=== PATIENT | female | born 1990 | race Caucasian/White ===

== ENCOUNTER 2018-04-01 18:07 | Emergency (ER) | payer OTHER ==
[2018-04-01 18:30] VITALS: BP 122/77
--- NOTE | 2018-04-01 19:15 | UC ---
Throat Pain/Nasal Pancho HPI - HPI Summary HPI Summary: c/o sore throat with malaise and some URI symptoms for several days, son was diagnosed with strep throat. Denies fever, chills or n/v/d. - History of Current Complaint Chief Complaint: UCGeneralIllness Stated Complaint: SORE THROAT Time Seen by Provider: 04/01/18 18:38 Hx Obtained From: Patient Hx Last Menstrual Period: last wk Onset/Duration: Sudden Onset, Lasting Days Severity: Moderate Pain Intensity: 5 Cough: None Associated Signs & Symptoms: Positive: Nasal Discharge - Epiglottits Risk Factors Epiglottis Risk Factors: Negative - Allergies/Home Medications Allergies/Adverse Reactions: Allergies Allergy/AdvReac Type Severity Reaction Status Date / Time morphine AdvReac Vomiting Verified 04/01/18 18:25 PMH/Surg Hx/FS Hx/Imm Hx Previously Healthy: Yes - Surgical History Surgical History: Yes Surgery Procedure, Year, and Place: L ankle - Family History Known Family History: Positive: Hypertension - Social History Alcohol Use: Rare Substance Use Type: None Smoking Status (MU): Former Smoker Type: Cigarettes Amount Used/How Often: 1-2 CIGS PER WK Length of Time of Smoking/Using Tobacco: 3 MOS Review of Systems Constitutional: Negative ENT: Sore Throat All Other Systems Reviewed And Are Negative: Yes Physical Exam Triage Information Reviewed: Yes Appearance: Well-Appearing, No Pain Distress, Obese Vital Signs: Initial Vital Signs Temp 98.8 F 04/01/18 18:27 Pulse 99 04/01/18 18:27 Resp 15 04/01/18 18:27 BP 122/77 04/01/18 18:27 Pulse Ox 100 04/01/18 18:27 Vital Signs Reviewed: Yes Eyes: Positive: Conjunctiva Clear ENT: Positive: Normal ENT inspection, Hearing grossly normal, Pharynx normal Neck: Positive: Supple, Nontender, No Lymphadenopathy Respiratory: Positive: Chest non-tender, Lungs clear, Normal breath sounds, No respiratory distress, No accessory muscle use Cardiovascular: Positive: RRR, No Murmur, Pulses Normal, Brisk Capillary Refill Throat Pain/Nasal Course/Dx - Course Course Of Treatment: rapid strept was negative, awaiting results of the throat culture. f/u labs in 48 hr if positve. - Differential Dx/Diagnosis Provider Diagnoses: pharyngitis Discharge - Sign-Out/Discharge Documenting (check all that apply): Discharge/Admit/Transfer - Discharge Plan Condition: Stable Disposition: HOME Patient Education Materials: Pharyngitis (ED) Referrals: No Primary Care Phys,NOPCP [Primary Care Provider] - [facility] [place] [facility] [Outside] - Billing Disposition and Condition Condition: STABLE Disposition: Home
== END 2018-04-01 19:18 | disposition home or self-care (01) ==
LOC: UCCORT 18:07
DX: J02.9 Acute pharyngitis, unspecified (principal); Z88.5 Allergy status to narcotic agent; Z87.891 Personal history of nicotine dependence
CPT/HCPCS: 87070; 87651; 99211; G0463

== ENCOUNTER 2019-03-31 08:14 | Emergency (ER) | payer OTHER ==
[2019-03-31 08:24] VITALS: BP 125/84
[2019-03-31] MEDS ORDERED: Albuterol/Ipratropium NEB.SOL* Albuterol 2.5 MG/Ipratropium 0.5 MG 3 ML INH ONE (08:39)
--- NOTE | 2019-03-31 08:40 | UC ---
Respiratory Complaint HPI - HPI Summary HPI Summary: 29-year-old female who says she's had a cough for over one year. She states over the past few days she has started coughing up "gross colored sputum". She is a nonsmoker, she is on control pills. She does not recall if she's had a fever over the past week. She has no family history of DVT or pulmonary embolus and she has no leg pain. - History of Current Complaint Chief Complaint: UCGeneralIllness Stated Complaint: COUGH, CHEST CONGESTION Time Seen by Provider: 03/31/19 08:21 Hx Obtained From: Patient Hx Last Menstrual Period: 03/30/19 ?: No Onset/Duration: Gradual Onset Severity Initially: Mild Severity Currently: Moderate - Patient states she "just feels terrible". Pain Intensity: 7 Character: Cough: Productive - Productive cough of "gross colored sputum". Aggravating Factors: Nothing Alleviating Factors: Nothing Associated Signs And Symptoms: Positive: Wheezing, URI, Nasal Congestion - Risk Factors Pulmonary Embolism Risk Factors: Oral Contraceptives - Allergies/Home Medications Allergies/Adverse Reactions: Allergies Allergy/AdvReac Type Severity Reaction Status Date / Time morphine AdvReac Vomiting Verified 03/31/19 08:24 PMH/Surg Hx/FS Hx/Imm Hx Previously Healthy: Yes - Surgical History Surgical History: Yes Surgery Procedure, Year, and Place: L ankle - Family History Known Family History: Positive: Hypertension - Social History Alcohol Use: Rare Substance Use Type: Marijuana Smoking Status (MU): Former Smoker Type: Cigarettes Amount Used/How Often: 1-2 CIGS PER WK Length of Time of Smoking/Using Tobacco: 3 MOS Review of Systems All Other Systems Reviewed And Are Negative: Yes ENT: Positive: Sore Throat - Sore throat for the past 3 days. Respiratory: Positive: Cough - Productive cough of "gross colored sputum". Cardiovascular: Positive: Other - Patient states she does have some "lung pain" on deep inspiration, however she does state she thinks this is from coughing a lot. Is Patient Immunocompromised?: No Physical Exam Triage Information Reviewed: Yes Appearance: Well-Appearing, No Pain Distress, Well-Nourished Vital Signs: Initial Vital Signs Temp 99.7 F 03/31/19 08:21 Pulse 124 03/31/19 08:21 Resp 20 03/31/19 08:21 BP 125/84 03/31/19 08:21 Pulse Ox 97 03/31/19 08:21 Vital Signs Reviewed: Yes Eyes: Positive: Conjunctiva Clear ENT: Positive: Hearing grossly normal, Pharyngeal erythema - Very minimal tonsillar erythema., TMs normal, Uvula midline Neck: Positive: Supple, Nontender, No Lymphadenopathy Respiratory: Positive: No respiratory distress, No accessory muscle use, Rhonchi - Mild scattered rhonchi., Wheezing - Expiratory wheezing on forced expiration. Cardiovascular: Positive: No Murmur, Pulses Normal, Brisk Capillary Refill, Tachycardia Musculoskeletal Exam: Normal Neurological Exam: Normal Psychological Exam: Normal Skin Exam: Normal Respiratory Course/Dx - Course Course Of Treatment: CXR: FINDINGS: The heart and mediastinum are normal in size and contour. The lungs are grossly clear. There is no evidence of large pleural effusion. Visualized bones are normal for the patient's age. There is no radiographic evidence of free air beneath the diaphragm IMPRESSION: No radiographic evidence of acute cardiopulmonary disease. Rapid strep:negative DuoNeb treatment: The wheezing and rhonchi have completely cleared following the DuoNeb treatment. Patient feels like she is taking about her breath. Her pulse was rechecked and it is at 100 prior to discharge. I did talk with her about the use of estrogen and its length to pulmonary embolus and she does not have a family history of DVT or pulmonary embolus. Her well's score was 1.5. Given her symptoms I'm going to treat her for bronchitis, after discussion with Dr. ledesma, and she is to go to the emergency room if she has any worsening symptoms, difficulty breathing or increased pain with inspiration. Patient is agreeable to this plan of action. When she departed she ambulated without difficulty and actually appeared like she felt much better. - Differential Dx/Diagnosis Provider Diagnosis: Bronchitis Discharge - Sign-Out/Discharge Documenting (check all that apply): Patient Departure All imaging exams completed and their final reports reviewed: Yes - Discharge Plan Condition: Fair Disposition: HOME Prescriptions: Azithromyxin RAGHAV (NF) [Z-Raghav (Zithromax) 250 mg tabs #6] 2 tab PO .TODAY, THEN 1 DAILY #6 tab predniSONE [Prednisone 20 MG TAB] 20 mg PO DAILY 9 Days #18 tablet Patient Education Materials: Acute Bronchitis (ED) Referrals: [facility] [Outside] No Primary Care Phys,NOPCP [Primary Care Provider] - Additional Instructions: Increase fluids, take the prednisone with food, follow-up with your primary care provider or [facility] if no improvement in 3 or 4 days. If you develop worsening pain on inspiration, difficulty breathing or any worsening symptoms follow-up in the emergency room. - Billing Disposition and Condition Condition: FAIR Disposition: Home - Attestation Statements Provider Attestation: Per institutional requirements, I have reviewed the chart, however, I was not consulted specifically or made aware of this patient by the midlevel provider. I did not personally evaluate, interact with , or disposition this patient.
== END 2019-03-31 08:30 | disposition home or self-care (01) ==
LOC: UCCORT 08:14
DX: J40 Bronchitis, not specified as acute or chronic (principal); Z79.3 Long term (current) use of hormonal contraceptives; Z88.5 Allergy status to narcotic agent; Z87.891 Personal history of nicotine dependence
CPT/HCPCS: 71046; 87651; 99212; A9270-GY; G0463

== ENCOUNTER 2019-12-23 11:58 | Emergency (ER) | payer OTHER ==
[2019-12-23 12:47] VITALS: BP 112/69
--- NOTE | 2019-12-23 12:50 | UC ---
General HPI - HPI Summary HPI Summary: 29yo female presenting with a "round white spot" on the roof of her mouth that she noticed this morning. States it is tender. States she is getting over having the flu. States symptoms better but has residual cough. Denies having a sore throat but would like to be swabbed for strep because she has been around her son's friends who have it. Denies fever and chills. - History of Current Complaint Chief Complaint: UCGeneralIllness Stated Complaint: MOUTH COMP Hx Obtained From: Patient Hx Last Menstrual Period: 12/02/19 Pain Intensity: 5 - Allergy/Home Medications Allergies/Adverse Reactions: Allergies Allergy/AdvReac Type Severity Reaction Status Date / Time morphine AdvReac Vomiting Verified 12/23/19 12:44 Home Medications: Home Medications desogestreL-ethinyl estradioL [Enskyce 28 Tablet] 1 tab PO DAILY 12/23/19 [ History Confirmed 12/23/19] PMH/Surg Hx/FS Hx/Imm Hx - Surgical History Surgical History: Yes Surgery Procedure, Year, and Place: L ankle - Family History Known Family History: Positive: Hypertension - Social History Alcohol Use: Rare Substance Use Type: Marijuana Smoking Status (MU): Former Smoker Type: Cigarettes Amount Used/How Often: 1-2 CIGS PER WK Length of Time of Smoking/Using Tobacco: 3 MOS When Did the Patient Quit Smoking/Using Tobacco: 2007 Review of Systems All Other Systems Reviewed And Are Negative: Yes Constitutional: Positive: Negative ENT: Positive: Other - "round white spot" on roof of mouth. Negative: Sore Throat Respiratory: Positive: Cough Cardiovascular: Positive: Negative Gastrointestinal: Positive: Negative Musculoskeletal: Positive: Negative Neurological/Mental Status: Positive: Negative Physical Exam - Summary Physical Exam Summary: Vital Signs Reviewed: Yes A+Ox3, no distress, well-appearing Eyes: Conjunctiva Clear ENT: Hearing grossly normal, TM x 2 clear, moist, uvula midline, 5mm round white lesion noted on right side soft palate with smaller 1mm lesions extending back to right tonsil, lesions are surrounded by erythema, mildly tender to palpation, nondraining, no tonsillar swelling Neck: Positive: Supple, no adenopathy Respiratory: Positive: No respiratory distress, No accessory muscle use Cardiovascular: skin reflects adequate perfusion Musculoskeletal Exam: ARGUETA x 4 without difficulty Neurological: Positive: Alert Psychological: Positive: age appropriate behavior Skin: Positive: no rash, no ecchymosis Vital Signs: Initial Vital Signs Temp 97.8 F 12/23/19 12:45 Pulse 102 12/23/19 12:45 Resp 15 12/23/19 12:45 BP 112/69 12/23/19 12:45 Pulse Ox 98 12/23/19 12:45 Lab Results 12/23/19 Range/Units 13:01 Group A Strep Rapid Negative (Negative) Course/Dx - Course Course Of Treatment: Negative rapid strep test. Discussed with patient likely viral etiology of symptoms. I educated on symptomatic relief and instructed to follow up if symptoms worsen or persist. Patient voiced understanding and agreed with treatment plan. - Diagnoses Provider Diagnosis: Soft palate ulceration Discharge ED - Sign-Out/Discharge Documenting (check all that apply): Patient Departure All imaging exams completed and their final reports reviewed: No Studies - Discharge Plan Condition: Stable Disposition: HOME Patient Education Materials: Canker Sores (ED) Referrals: [facility] [Outside] - If Needed Additional Instructions: Your strep test was negative today. It is unclear what is causing the lesions in your mouth today. You may take over the counter pain medications as directed. Practice good oral hygiene. Avoid hard, crunchy foods that may cause further pain and irritation. Follow up with your primary care provider or the [facility] listed below if symptoms worsen or do not improve within 2 weeks. - Billing Disposition and Condition Condition: STABLE Disposition: Home
== END 2019-12-23 13:24 | disposition home or self-care (01) ==
LOC: UCCORT 11:58
DX: K12.1 Other forms of stomatitis (principal); R05 Cough; Z88.5 Allergy status to narcotic agent; Z87.891 Personal history of nicotine dependence
CPT/HCPCS: 87651; 99211; G0463

== ENCOUNTER 2019-12-25 15:28 | Emergency (ER) | payer OTHER ==
[2019-12-25 15:52] VITALS: BP 127/80
--- NOTE | 2019-12-25 16:04 | UC ---
Throat Pain/Nasal Pancho HPI - HPI Summary HPI Summary: 29 y/o female presents to the urgent care c/o Pt seen here 2 days ago and she had one sore on the right side of the roof of her mouth. Pt back today because there are white sores all throughout the roof of her mouth and her soft palate. Pt states they are very painful. Pt states she was strep negative last time she was here. - History of Current Complaint Chief Complaint: UCDentalProblem Stated Complaint: ORAL COMPLAINT/SORE THROAT Time Seen by Provider: 12/25/19 15:44 Hx Obtained From: Patient Hx Last Menstrual Period: 12/02/19 Onset/Duration: Gradual Onset, Lasting Days - 3 days, Still Present, Worse Since - yesterday w/ worsening sore throat and more white spots in her throat Severity: Moderate Pain Intensity: 8 - sore throat Pain Scale Used: 0-10 Numeric Cough: Nonproductive Associated Signs & Symptoms: Positive: Nasal Discharge - clear, Fever - low grade fever at home, Other - white sports on her throat and palate. Negative: Dysphagia, Wheezing, Vomiting - Epiglottits Risk Factors Epiglottis Risk Factors: Negative - Allergies/Home Medications Allergies/Adverse Reactions: Allergies Allergy/AdvReac Type Severity Reaction Status Date / Time morphine AdvReac Vomiting Verified 12/25/19 15:49 Home Medications: Home Medications desogestreL-ethinyl estradioL [Enskyce 28 Tablet] 1 tab PO DAILY 12/23/19 [ History Confirmed 12/25/19] Chlorhexidine MOUTHWASH 0.12%* [Peridex Mouth Wash 0.12%*] 15 ml MT BID #1 btl 12/25/19 [Rx] Nystatin SUSPENSION ORAL SYR* 100,000 units PO QID #1 udc 12/25/19 [Rx] PMH/Surg Hx/FS Hx/Imm Hx Previously Healthy: Yes - Pt denies PMHX - Surgical History Surgical History: Yes Surgery Procedure, Year, and Place: L ankle - Family History Known Family History: Positive: Hypertension - Social History Occupation: Employed Full-time Lives: With Family Alcohol Use: Rare Substance Use Type: Marijuana Smoking Status (MU): Former Smoker Type: Cigarettes Amount Used/How Often: 1-2 CIGS PER WK Length of Time of Smoking/Using Tobacco: 3 MOS When Did the Patient Quit Smoking/Using Tobacco: 2007 Review of Systems All Other Systems Reviewed And Are Negative: Yes Constitutional: Positive: Fever - low grade fever at home Skin: Positive: Negative Eyes: Positive: Negative ENT: Positive: Sore Throat - and white spots on pharynx and palate, Nasal Discharge - clear Respiratory: Positive: Cough - productive Cardiovascular: Positive: Negative Gastrointestinal: Positive: Negative Genitourinary: Positive: Negative Motor: Positive: Negative Neurovascular: Positive: Negative Musculoskeletal: Positive: Negative Neurological/Mental Status: Positive: Negative Psychological: Positive: Negative Is Patient Immunocompromised?: No Physical Exam - Summary Physical Exam Summary: VITAL SIGNS: Reviewed. GENERAL: Patient is a well developed and nourished female who is sitting comfortably in the examining table. Patient is not in any acute respiratory distress. HEAD AND FACE: No signs of trauma. No ecchymosis, hematomas or skull depressions. No sinus tenderness. EYES: PERRLA, EOMI x 2, No injected conjunctiva, no nystagmus. No photophobia. EARS: Hearing grossly intact. Ear canals and tympanic membranes are within normal limits. MOUTH: Positive pharynx with erythema, exudates, palatal salite white plaques . B/L tonsillar enlargement with white plaques. Uvula in midline. tongue w/ creamy white spots adherent to the oral mucosa NECK: Supple, trachea is midline, Positive anterior cervical lymphadenopathy, no JVD, no carotid bruit, no c-spine tenderness, neck with full ROM. No meningeal signs, no Kernig's or brudzinskis signs. CHEST: Symmetric, no tenderness at palpation LUNGS: Clear to auscultation bilaterally. No wheezing or crackles. CVS: Regular rate and rhythm, S1 and S2 present, no murmurs or gallops appreciated. ABDOMEN: Soft, non-tender. No signs of distention. No rebound no guarding, and no masses palpated. Bowel sounds are normal. EXTREMITIES: FROM in all major joints, no edema, no cyanosis or clubbing. NEURO: Alert and oriented x 3. No acute neurological deficits. Speech is normal and follows commands. SKIN: Dry and warm Triage Information Reviewed: Yes Vital Signs: Initial Vital Signs Temp 98.4 F 12/25/19 15:49 Pulse 91 12/25/19 15:49 Resp 16 12/25/19 15:49 BP 127/80 12/25/19 15:49 Pulse Ox 100 12/25/19 15:49 Throat Pain/Nasal Course/Dx - Course Course Of Treatment: Pt w/ oral candidiasis on examination. Pt Rx Nystatin PO and Chlorhexidine Mouthwash to alleviate symptoms. Pt advised to f/u w/ PCP if not improvement of symptoms. D/C instructions explained. Pt understood and agreed w/ plan of care. - Differential Dx/Diagnosis Differential Diagnosis/HQI/PQRI: Influenza, Laryngitis, Pharyngitis, Sinusitis, URI, Other - thrust, pneumonia Provider Diagnosis: Oral candidiasis, Cough Discharge ED - Sign-Out/Discharge Documenting (check all that apply): Patient Departure - D/C home All imaging exams completed and their final reports reviewed: Yes - Discharge Plan Condition: Stable Disposition: HOME Prescriptions: Chlorhexidine MOUTHWASH 0.12%* [Peridex Mouth Wash 0.12%*] 15 ml MT BID #1 btl Nystatin SUSPENSION ORAL SYR* 100,000 units PO QID #1 [facility] [place] Patient Education Materials: Oral Candidiasis (ED) Referrals: [facility] [place] [facility] [Outside] - 3 Days Additional Instructions: 1- Please take Nystatin PO as directed and Chlorhexidine spray to alleviate pain and swelling 2-Please take ibuprofen PO q6-8hrs prn as instructed after meals to alleviate pain and swelling. Increase fluid intake, eat well, rest and avoid strenuous exercise. Take Robitusiin PO to alleviate cough 3-If symptoms do not improve or worsen please return to the urgent care or f/u with your PCP for further evaluation and treatment. 4-Throat culture and CBC and Mononucleosis was sent to lab you will be notified of any abnormality for further management - Billing Disposition and Condition Condition: STABLE Disposition: Home
[2019-12-26 12:52] LABS: ABS Basophils 0.1 10^3/ul (0-0.2); ABS Lymphocytes 1.7 10^3/ul (1.0-4.8); ABS Monocytes 0.5 10^3/ul (0-0.8); ABS Neutrophils 6.3 10^3/ul (1.5-7.7); Eosinophil % 0.5 %; Hematocrit 41 % (35-47); Hemoglobin 14.3 g/dL (12.0-16.0); Lymphocyte % 19.9 %; Mean Corpuscular HGB Conc 35 g/dL (31-36); Mean Corpuscular Hemoglobin 30 pg (27-31); Mean Corpuscular Volume 87 fL (80-97); Mean Platelet Volume 8.6 fL (7.4-10.4); Nucleated Red Blood Cells % 0.1; Platelet Count 294 10^3/uL (150-450); Red Blood Count 4.75 10^6 /uL (3.70-4.87); Red Cell Distribution Width 14 % (10-15); White Blood Count 8.7 10^3/uL (3.5-10.8)
== END 2019-12-25 16:58 | disposition home or self-care (01) ==
LOC: UCCORT 15:28
DX: B37.0 Candidal stomatitis (principal); R05 Cough; Z88.5 Allergy status to narcotic agent; Z87.891 Personal history of nicotine dependence
CPT/HCPCS: 36415; 71046; 85025; 86308; 86664; 86665; 87070; 99212; G0463